=== PATIENT | male | born 1935 | race Caucasian/White ===

== ENCOUNTER 2016-11-28 08:59 | Emergency (ER) | payer MEDICARE, MEDICAID ==
[~2016-11-28] VITALS: Ht 185.4 cm; Wt 108.9 kg
[2016-11-28] MEDS ORDERED: FENO160T PO (09:14)
[2016-11-28] MEDS ORDERED: RANI150T8 PO (09:14)
[2016-11-28] MEDS ORDERED: CLOP75TA15 PO (09:14)
[2016-11-28] MEDS ORDERED: ALLO300T2 PO (09:14)
[2016-11-28] MEDS ORDERED: VALS80TA2 PO (09:14)
[2016-11-28] MEDS ORDERED: SEVE800T8 PO (09:14)
[2016-11-28] MEDS ORDERED: SITA50TA PO (09:14)
[2016-11-28] MEDS ORDERED: SIMV40TA5 PO (09:14)
--- NOTE | 2016-11-28 09:14 | NUR ---
Dr Carlton at the bedside for eval and exam.
[2016-11-28] MEDS ORDERED: HYDROCODONE/APAP 5-325MG TABLET PO ONE (09:15)
[2016-11-28] MEDS ORDERED: CARV6.252 PO (09:17)
[2016-11-28] MEDS ORDERED: FERR325T28 PO (09:17)
[2016-11-28] MEDS ORDERED: HYDR25TA4 PO (09:17)
[2016-11-28] MEDS ORDERED: HYDROCODONE/APAP 5-325MG TABLET ONE (09:30)
[2016-11-28 09:32] VITALS: BP 140/68
--- NOTE | 2016-11-28 09:33 | NUR ---
Patient discharged to home in stable conditon. Written and verbal after care instructions given. Patient verbalizes understanding of instructions.
== END 2016-11-28 09:32 | disposition home or self-care (01) ==
LOC: ER 08:59
DX: H60.91 Unspecified otitis externa, right ear (principal); I10 Essential (primary) hypertension; E78.5 Hyperlipidemia, unspecified; K21.9 Gastro-esophageal reflux disease without esophagitis; E11.9 Type 2 diabetes mellitus without complications; M10.9 Gout, unspecified
CPT/HCPCS: A4663